=== PATIENT | female | born 1985 | race African-American/Black ===

== ENCOUNTER → 2018-07-13 | Outpatient (CLI) | payer OTHER ==
[~2018-07-13] MED LIST: CIPROFLOXACIN500 M1 PO; COLACE 100 MG100 MG PO; NOHOMEMEDICATIONS; PROCTOFOAM-HC F10 G1 RE; ZOFRAN4 MG PO
== END ==
LOC: M.ULTRA 08:53 → M.RAD 09:00 → M.ULTRA 09:00
DX: N60.02 Solitary cyst of left breast (principal); N64.4 Mastodynia

== ENCOUNTER → 2019-10-03 | Outpatient (CLI) | payer OTHER ==
[2019-10-03 11:27] LABS: ABSOLUTE EOSINOPHILS 0.1 thou/uL (0.0-0.7); ABSOLUTE LYMPHOCYTES 2.2 thou/uL (0.8-5.3); ABSOLUTE MONOCYTES 0.6 thou/uL (0.0-1.2); BASOPHILS 0.5 %; HEMATOCRIT 39.7 % (37.0-47.0); HEMOGLOBIN 13.2 gm/dL (12.0-15.0); LYMPHOCYTES 31.5 %; MCH 31.1 pg (26.0-34.0); MCHC 33.4 g/dL (28.0-37.0); MCV 93.1 fL (80.0-100.0); MONOCYTES 9.1 %; MPV 7.9 fl. (7.2-11.1); NUCLEATED RBCS 0 /100WBC; PLATELET COUNT* 283 thou/uL (150-400); POLYS 57.9 %; RBC 4.26 mil/uL (4.20-5.00); WBC 6.9 thou/uL (4.0-11.0)
== END ==
LOC: M.CT 10:59
PROVIDERS: Internal Medicine
DX: N83.291 Other ovarian cyst, right side (principal); N88.8 Other specified noninflammatory disorders of cervix uteri